=== PATIENT | male | born 1990 | race Two or more races ===

== ENCOUNTER 2022-04-21 15:42 | Emergency (ER) | payer SELFPAY ==
[~2022-04-21] VITALS: Ht 172.7 cm; Wt 86.2 kg
[2022-04-21 15:50] VITALS: BP 145/96
[2022-04-21] MEDS ORDERED: IBUPROFEN 600 MG TABLET PO ONE (16:30)
[2022-04-21] MEDS ORDERED: IBUP-1955 PO (17:03)
[2022-04-21] MEDS ORDERED: IBUPROFEN 600 MG TABLET ONE (17:08)
== END 2022-04-21 17:17 | disposition home or self-care (01) ==
LOC: ER 15:47
DX: M25.511 Pain in right shoulder (principal); M25.521 Pain in right elbow; Z60.2 Problems related to living alone; V13.9XXA Unspecified pedal cyclist injured in collision with car, pick-up truck or van in traffic accident, initial encounter; Y93.89 Activity, other specified; Y92.89 Other specified places as the place of occurrence of the external cause; Y99.8 Other external cause status
CPT/HCPCS: 73080-TC